=== PATIENT | male | born 1990 | race Caucasian/White ===

== ENCOUNTER 2022-05-21 14:57 | Emergency (ER) | payer OTHER ==
[~2022-05-21] VITALS: Ht 177.8 cm; Wt 98.3 kg
[2022-05-21 15:14] VITALS: BP 118/82
[2022-05-21 15:50] LABS: Urine Bacteria NONE SEEN /hpf (None Seen); Urine Blood Negative /uL (Negative); Urine Specific Gravity 1.038 (1.001-1.035); Urine WBC <1 /hpf (0 - 3)
[2022-05-21 15:53] LABS: Basophils # (auto) 0 10 ^3/uL (0-0.2); Basophils % (auto) 0.9 % (0.0-2.0); Eosinophils # (auto) 0.1 10 ^3/uL (0-0.8); Eosinophils % (auto) 2.4 % (0.0-7.0); Hemoglobin 13.2 g/dL (13.5-17.5); Mean Corpuscular Hemoglobin 29.6 pg (28.0-32.0); Mean Corpuscular Hgb Conc. 32.9 g/dL (32.0-36.0); Monocytes # (auto) 0.4 10 ^3/uL (0-1.3); Monocytes % (auto) 7.5 % (0.0-12.0); Neutrophils # (auto) 2.8 10 ^3/uL (1.6-8.6); Neutrophils % (auto) 52.2 % (37.0-80.0); Nucleated Red Blood Cells % 0.1 %; Red Blood Cells 4.45 10^6/uL (4.5-5.90); White Blood Cell 5.3 10^3/uL (4.4-10.8)
[2022-05-21 16:11] LABS: Albumin 3.8 g/dL (3.4-5.0); Calcium 9.2 mg/dL (8.5-10.1); Potassium 3.7 mmol/L (3.5-5.1)
[2022-05-21 16:15] LABS: BUN/Creatinine Ratio 14.1; Bilirubin, Total 0.5 mg/dL (0.2-1.0); Total Protein 8.1 g/dL (6.4-8.2)
[2022-05-21] MEDS ORDERED: InsuLIN REG 1unit/0.01ml Soln (100units/ml) SC ONE (16:15)
[2022-05-21] MEDS ORDERED: ONDANSETRON ODT 4 MG TAB PO ONE (16:30)
== END 2022-05-21 18:04 | disposition home or self-care (01) ==
LOC: ER 14:57
DX: E11.65 Type 2 diabetes mellitus with hyperglycemia (principal)
CPT/HCPCS: 36415; 80053; 81001; 82962; 84484; 85025; 96360

== ENCOUNTER 2023-01-20 10:59 | Emergency (ER) | payer OTHER ==
[~2023-01-20] VITALS: Ht 177.8 cm; Wt 85.0 kg
[2023-01-20 12:05] LABS: Basophils # (auto) 0.1 10 ^3/uL (0-0.2); Basophils % (auto) 0.5 % (0.0-2.0); Eosinophils # (auto) 0.1 10 ^3/uL (0-0.8); Eosinophils % (auto) 0.6 % (0.0-7.0); Hematocrit 43.7 % (41.0-53.0); Hemoglobin 15.3 g/dL (13.5-17.5); Lymphocytes # (auto) 2.7 10 ^3/uL (0.4-5.4); Lymphocytes % (auto) 25.4 % (10.0-50.0); Mean Corpuscular Hemoglobin 31.4 pg (28.0-32.0); Mean Corpuscular Volume 89.6 fL (80.0-100.0); Monocytes # (auto) 1.1 10 ^3/uL (0-1.3); Monocytes % (auto) 9.8 % (0.0-12.0); Neutrophils # (auto) 6.9 10 ^3/uL (1.6-8.6); Neutrophils % (auto) 63.7 % (37.0-80.0); Nucleated Red Blood Cells % 0.5 %; Red Blood Cells 4.88 10^6/uL (4.5-5.90); Red Cell Distribution Width 14.6 % (11.8-14.3); White Blood Cell 10.8 10^3/uL (4.4-10.8)
[2023-01-20 12:09] LABS: Urine Bacteria NONE SEEN /hpf (None Seen); Urine Blood Negative /uL (Negative); Urine Mucus FEW (None Seen); Urine Specific Gravity 1.014 (1.001-1.035); Urine WBC 19 /hpf (0 - 3)
[2023-01-20] MEDS ORDERED: ASPirin 325 MG TAB PO ONE (14:00)
[2023-01-20 14:48] LABS: Potassium 4.5 mmol/L (3.5-5.1)
[2023-01-20 14:49] LABS: Albumin 3.7 g/dL (3.4-5.0); BUN/Creatinine Ratio 10.4 (10.0-20.0); Bilirubin, Total 0.7 mg/dL (0.2-1.0); Calcium 9.8 mg/dL (8.5-10.1); Total Protein 8.9 g/dL (6.4-8.2)
[2023-01-20 17:20] VITALS: BP 133/85
== END 2023-01-20 17:33 | disposition home or self-care (01) ==
LOC: ER 10:59
DX: R07.89 Other chest pain (principal); E11.65 Type 2 diabetes mellitus with hyperglycemia
CPT/HCPCS: 36415; 71045; 80053; 81001; 84484; 85025; 93005

== ENCOUNTER 2023-01-23 08:13 | Inpatient (IN) | payer OTHER ==
[~2023-01-23] VITALS: Ht 170.2 cm; Wt 72.7 kg
[2023-01-23 08:51] LABS: Basophils # (auto) 0.1 10 ^3/uL (0-0.2); Basophils % (auto) 0.6 % (0.0-2.0); Eosinophils # (auto) 0 10 ^3/uL (0-0.8); Eosinophils % (auto) 0.3 % (0.0-7.0); Hematocrit 41.1 % (41.0-53.0); Hemoglobin 14.3 g/dL (13.5-17.5); Lymphocytes # (auto) 1.1 10 ^3/uL (0.4-5.4); Lymphocytes % (auto) 9.8 % (10.0-50.0); Mean Corpuscular Hemoglobin 31.5 pg (28.0-32.0); Mean Corpuscular Hgb Conc. 34.8 g/dL (32.0-36.0); Mean Corpuscular Volume 90.4 fL (80.0-100.0); Monocytes % (auto) 8.9 % (0.0-12.0); Neutrophils # (auto) 9.3 10 ^3/uL (1.6-8.6); Neutrophils % (auto) 80.4 % (37.0-80.0); Red Blood Cells 4.55 10^6/uL (4.5-5.90); White Blood Cell 11.6 10^3/uL (4.4-10.8)
[2023-01-23 09:19] LABS: Urine Bacteria NONE SEEN /hpf (None Seen); Urine Blood Negative /uL (Negative); Urine WBC 2 /hpf (0 - 3)
[2023-01-23 09:21] LABS: Albumin 3.5 g/dL (3.4-5.0); Calcium 9.2 mg/dL (8.5-10.1); Potassium 4.4 mmol/L (3.5-5.1)
[2023-01-23 09:24] LABS: BUN/Creatinine Ratio 15.6 (10.0-20.0); Bilirubin, Total 0.5 mg/dL (0.2-1.0); Total Protein 8.2 g/dL (6.4-8.2)
[2023-01-23] MEDS ORDERED: LACTATED RINGER'S 2,000 ML IV ONE (10:15)
[2023-01-23] MEDS ORDERED: chlordiazePOXIDE HCL 25 MG CAP PO ONE (11:00)
[2023-01-23] MEDS ORDERED: SODIUM CHLORIDE 0.9% 2,000 ML IV ONE (12:30)
[2023-01-23] MEDS ORDERED: cloNIDine HCL 0.1 MG TAB PO PRN (12:30)
[2023-01-23] MEDS ORDERED: ONDANSETRON HCL 4 MG/2 ML VIAL IV PRN (12:30)
[2023-01-23] MEDS ORDERED: MORPHINE SULFATE INJ 2 MG/ml SYRG IV PRN (12:30)
[2023-01-23] MEDS ORDERED: DEXTROSE (50%) 50ML SYRG IV PRN (12:30)
[2023-01-23 13:10] LABS: Magnesium 1.6 mg/dL (1.6-2.6); Phosphorus 2.7 mg/dL (2.5-4.90)
[2023-01-23] MEDS: chlordiazePOXIDE HCL 25 MG CAP PO SCH ×2 (13:17→19:06)
[2023-01-23] MEDS: PROPRANOLOL HCL 20 MG TAB PO SCH ×2 (14:08→22:20)
[2023-01-23] MEDS: GABAPENTIN 400 MG CAP PO SCH ×2 (14:09→22:19)
[2023-01-23] MEDS: SODIUM CHLORIDE 0.9% 1,000 ML IV SCH ×2 (14:54→21:11)
[2023-01-23] MEDS: ACCU-CHEK COMFORT CURVE STRIP VI SCH ×3 (16:18→23:26)
[2023-01-23] MEDS: InsuLIN REG 1unit/0.01ml Soln (100units/ml) SC SCH ×3 (16:23→23:26)
[2023-01-23] MEDS ORDERED: BUPR8MIS SL (16:54)
[2023-01-24] MEDS: chlordiazePOXIDE HCL 25 MG CAP PO SCH ×3 (00:53→11:36)
[2023-01-24] MEDS: InsuLIN REG 1unit/0.01ml Soln (100units/ml) SC SCH ×3 (03:59→12:04)
[2023-01-24] MEDS: ACCU-CHEK COMFORT CURVE STRIP VI SCH ×3 (03:59→11:36)
[2023-01-24 05:00] VITALS: BP 127/91
[2023-01-24] MEDS: SODIUM CHLORIDE 0.9% 1,000 ML IV SCH ×2 (05:10→13:30)
[2023-01-24] MEDS: PROPRANOLOL HCL 20 MG TAB PO SCH ×2 (06:00→14:26)
[2023-01-24] MEDS: GABAPENTIN 400 MG CAP PO SCH ×2 (06:06→14:25)
[2023-01-24 06:52] LABS: Basophils # (auto) 0.1 10 ^3/uL (0-0.2); Basophils % (auto) 0.5 % (0.0-2.0); Eosinophils # (auto) 0.1 10 ^3/uL (0-0.8); Eosinophils % (auto) 0.5 % (0.0-7.0); Hematocrit 39.5 % (41.0-53.0); Hemoglobin 13.5 g/dL (13.5-17.5); Lymphocytes # (auto) 2.3 10 ^3/uL (0.4-5.4); Lymphocytes % (auto) 18.7 % (10.0-50.0); Mean Corpuscular Hemoglobin 30.2 pg (28.0-32.0); Mean Corpuscular Hgb Conc. 34.1 g/dL (32.0-36.0); Mean Corpuscular Volume 88.7 fL (80.0-100.0); Monocytes # (auto) 1.1 10 ^3/uL (0-1.3); Monocytes % (auto) 9.4 % (0.0-12.0); Neutrophils # (auto) 8.7 10 ^3/uL (1.6-8.6); Neutrophils % (auto) 70.9 % (37.0-80.0); Nucleated Red Blood Cells % 0.1 %; Red Blood Cells 4.46 10^6/uL (4.5-5.90); White Blood Cell 12.2 10^3/uL (4.4-10.8)
[2023-01-24 07:45] LABS: Calcium 8.9 mg/dL (8.5-10.1); Potassium 3.6 mmol/L (3.5-5.1)
[2023-01-24 07:50] LABS: BUN/Creatinine Ratio 16.1 (10.0-20.0); Bilirubin, Total 0.5 mg/dL (0.2-1.0); Total Protein 7.6 g/dL (6.4-8.2)
[2023-01-24 08:00] VITALS: BP 127/81
[2023-01-24] MEDS ORDERED: ENOXAPARIN SOD 40 MG/0.4 ML SYRINGE SC SCH (10:00)
[2023-01-24 12:00] VITALS: BP 121/83
[2023-01-24 13:46] VITALS: BP 127/91
[2023-01-25] MEDS ORDERED: chlordiazePOXIDE HCL 25 MG CAP PO SCH (10:00)
[2023-01-26] MEDS ORDERED: chlordiazePOXIDE HCL 25 MG CAP PO SCH (22:00)
== END 2023-01-24 15:50 | disposition home or self-care (01) | DRG 897 ==
LOC: ER 08:13 → EDBD 08:13 → TELE 12:41 → TELE-WESTW 21:53
PROVIDERS: ADMIT Nurse Practitioner Family; ATTEND Internal Medicine
DX: F13.239 Sedative, hypnotic or anxiolytic dependence with withdrawal, unspecified (principal); F11.23 Opioid dependence with withdrawal; E11.65 Type 2 diabetes mellitus with hyperglycemia; F41.1 Generalized anxiety disorder; F98.8 Other specified behavioral and emotional disorders with onset usually occurring in childhood and adolescence; G89.29 Other chronic pain; I10 Essential (primary) hypertension; R56.9 Unspecified convulsions; R07.9 Chest pain, unspecified; Z20.822 Contact with and (suspected) exposure to COVID-19; Z79.899 Other long term (current) drug therapy
CPT/HCPCS: 36415; 36600; 71045; 80053; 81001; 82010; 82805; 82962; 83036; 83735; 84100; 84443; 84484; 85025; 85379; 87426; 93005; 96360; 96361; G0378; J1815